=== PATIENT | male | born 1975 | race Caucasian/White ===

== ENCOUNTER 2023-06-01 07:40 | Day surgery (SDC) | payer MEDICAID ==
[~2023-06-01 07:40] MED LIST: Midazolam 1 MG/ML 2 ML SDV ONE; Propofol 200 MG/20 ML SDV ONE; fentaNYL 50 MCG/ML SDV ONE
[2023-06-01] MEDS ORDERED: Lactated Ringers 1,000 ML IV SCH (10:00)
== END 2023-06-01 12:09 | disposition home or self-care (01) ==
LOC: JP.SDS 07:40
PROVIDERS: ATTEND Student in an Organized Health Care Education/Training Program
DX: Z12.11 Encounter for screening for malignant neoplasm of colon (principal); D12.3 Benign neoplasm of transverse colon; I25.10 Atherosclerotic heart disease of native coronary artery without angina pectoris
CPT/HCPCS: 45380; J2250; J2704; J3010; J7120; 88305

== ENCOUNTER 2023-06-08 06:51 | Day surgery (SDC) | payer MEDICAID ==
[~2023-06-08 06:51] MED LIST changes: +fentaNYL 100 MCG/2 ML SDV ONE; -fentaNYL 50 MCG/ML SDV ONE
[2023-06-08] MEDS: Lactated Ringers 1,000 ML IV SCH (07:43)
== END 2023-06-08 09:45 | disposition home or self-care (01) ==
LOC: JP.SDS 06:51
PROVIDERS: ATTEND Student in an Organized Health Care Education/Training Program
DX: Z12.11 Encounter for screening for malignant neoplasm of colon (principal); F17.200 Nicotine dependence, unspecified, uncomplicated; E66.9 Obesity, unspecified; Z86.010 Personal history of colon polyps; Z68.39 Body mass index [BMI] 39.0-39.9, adult
CPT/HCPCS: J2250; J2704; J3010; J7120

== ENCOUNTER 2024-02-23 00:09 | Emergency (ER) | payer MEDICAID ==
[2024-02-23] MEDS: Ibuprofen 600 MG Tab PO ONE (01:55)
== END 2024-02-23 03:11 | disposition home or self-care (01) ==
LOC: JP.ED 00:09
DX: S82.54XA Nondisplaced fracture of medial malleolus of right tibia, initial encounter for closed fracture (principal); Z79.899 Other long term (current) drug therapy; X58.XXXA Exposure to other specified factors, initial encounter
CPT/HCPCS: 73610; 73630; 99285; A9270

== ENCOUNTER 2024-03-04 06:23 | Day surgery (SDC) | payer MEDICAID ==
[2024-03-04] MEDS: Nozin Nasal Sanitizer NASBOTH ONE (06:42)
[2024-03-04] MEDS: Lactated Ringers 1,000 ML IV SCH (06:42)
[2024-03-04 06:50] LABS: MEAN CORPUSCULAR HEMOGLOBIN 31.3 pg (31.6-35.5); MEAN CORPUSCULAR HGB CONC 34.9 g/dL (31.6-35.5); MEAN CORPUSCULAR VOLUME 89.8 fL (81.4-99.0); RED BLOOD CELL COUNT 4.79 M/uL (4.14-5.76); WHITE BLOOD CELL COUNT,WBC 8.2 K/uL (3.2-11.0)
[2024-03-04 07:02] LABS: CALCIUM 9.3 mg/dL (8.5-10.1); CREATININE 0.9 mg/dL (0.8-1.3); EST CRCL DRUG DOSING (CG) 115.76 mL/min; POTASSIUM,K 3.8 mmol/L (3.6-5.2)
[2024-03-04 07:11] LABS: ANION GAP 12.8 mmol/L (5.0-14.0)
[2024-03-04] MEDS: ceFAZolin 2 GM in Premix Bag 1 BAG IV ONE (07:40)
[2024-03-04] MEDS ORDERED: Ondansetron 4 MG/2 ML SDV ONE (07:41)
[2024-03-04] MEDS ORDERED: Glycopyrrolate 0.2 MG/ML 5 ML MDV ONE (07:41)
[2024-03-04] MEDS ORDERED: Propofol 200 MG/20 ML SDV ONE (07:41)
[2024-03-04] MEDS ORDERED: Rocuronium 50 MG/5 ML Vial ONE (07:41)
[2024-03-04] MEDS ORDERED: Succinylcholine 200 MG/10 ML MDV ONE (07:41)
[2024-03-04] MEDS ORDERED: Dexamethasone 4 MG/ML SDV ONE (07:41)
[2024-03-04] MEDS ORDERED: Neostigmine Methylsulfate 10 MG/10 ML MDV ONE (07:41)
[2024-03-04] MEDS ORDERED: fentaNYL 250 MCG/5 ML SDV ONE ×2 (07:41→08:44)
[2024-03-04] MEDS: Bupivacaine 0.5% 50 ML MDV ONE (08:17)
[2024-03-04] MEDS: Acetaminophen/HYDROcodone 325-5 MG Tab PO ONE (11:09)
== END 2024-03-04 11:45 | disposition home or self-care (01) ==
LOC: JP.SDS 06:23
PROVIDERS: ATTEND Specialist
DX: S82.51XA Displaced fracture of medial malleolus of right tibia, initial encounter for closed fracture (principal); K21.9 Gastro-esophageal reflux disease without esophagitis; E11.9 Type 2 diabetes mellitus without complications
CPT/HCPCS: 01480; 27766; 36415; 76000; 80048; 85027; 93005; A9270; C1713; C1776; J0330; J0665; J0690; J1100; J2405; J2704; J2710; J3010; J3490; J7120; 93010

== ENCOUNTER 2024-05-17 13:39 | Emergency (ER) | payer MEDICAID | END 2024-05-17 15:44 | disposition home or self-care (01) | LOC: JP.ED 13:39 | DX: S60.512A Abrasion of left hand, initial encounter (principal); S60.511A Abrasion of right hand, initial encounter; S80.812A Abrasion, left lower leg, initial encounter; S30.811A Abrasion of abdominal wall, initial encounter; E66.9 Obesity, unspecified; Z79.899 Other long term (current) drug therapy; Z79.1 Long term (current) use of non-steroidal anti-inflammatories (NSAID); Z68.1 Body mass index [BMI] 19.9 or less, adult; W54.1XXA Struck by dog, initial encounter | CPT/HCPCS: 99283 ==